=== PATIENT | female | born 1975 | race Hispanic/Latino ===

== ENCOUNTER 2021-10-08 11:08 | Emergency (ER) | payer SELFPAY ==
[2021-10-08 11:48] LABS: #Lymphocytes 1.4 thou/uL (1.20-3.40); #Monocytes 0.8 thou/uL (0.11-0.59); %Basophils 0.1 % (0.0-1.0); %Eosinophils 0.4 % (0.0-10.0); %Lymphocytes 11.4 % (21.0-51.0); %Monocytes 6.8 % (0.0-10.0); %Neutrophils 81.3 % (42.0-75.0); Hemoglobin 12.5 g/dL (12.0-16.0); Mean Corpuscular Hemoglobin 26.1 pg (27.0-31.0); Mean Corpuscular Volume 81.3 fL (78.0-98.0); Mean Platelet Volume 9.7 fL (7.4-10.4); Platelet Count 315 thou/uL (130-400); RBC Distribution Width 16.5 % (11.5-14.5); Red Blood Cell (RBC) Count 4.79 mill/uL (4.20-5.40); White Blood Cell (WBC) Count 12.2 thou/uL (4.8-10.8)
[2021-10-08] MEDS ORDERED: cefTRIAXone\\ROCEPHIN 2 GM VIAL ONE (11:56)
[2021-10-08 11:58] LABS: Bilirubin Unable to Interpret (Negative); Blood, Urine Unable to Interpret (Negative); Clarity Hazy (Clear); Glucose, Urine (Dipstick) Unable to Interpret mg/dL (Negative); Ketone, Urine Unable to Interpret mg/dL (Negative); Leukocyte Unable to Interpret (Negative); Nitrite Unable to Interpret (Negative); Protein, Urine (Dipstick) Unable to Interpret mg/dL (Neg-Trace); Specific Gravity, Urine 1.022 (1.002-1.036); Urobilinogen UNABLE TO INTERPRET mg/dL (Less than 2)
[2021-10-08 11:59] LABS: Bacteria/HPF 1+ HPF (None Seen); RBC/HPF Greater than 50 HPF (0-3)
[2021-10-08 12:00] LABS: Pregnancy Test - Urine (BHCG) Negative (Negative); Pregu Control Background? CLEAR/WHITE (CLR/WHITE); Pregu Control Bar Appear? YES (CONTROL BAR); Specific Gravity 1.022 (1.002-1.036)
[2021-10-08 12:28] LABS: Albumin 4.6 g/dL (3.5-5.0)
[2021-10-08 12:30] LABS: Calcium 10.1 mg/dL (7.8-10.44); Potassium 4.7 mmol/L (3.5-5.1)
[2021-10-08 12:31] LABS: Globulin 3.9 g/dL (2.4-3.5); Glucose 114 mg/dL (70-105); Protein, Total 8.5 g/dL (6.0-8.3)
[2021-10-08 12:32] LABS: Anion Gap 19 mmol/L (10-20); Carbon Dioxide 19 mmol/L (22-29)
[2021-10-08 12:33] LABS: Bilirubin, Total 0.3 mg/dL (0.2-1.2)
[2021-10-08 12:34] LABS: Alkaline Phosphatase 204 U/L (40-110); Calc. Creatinine Clearance 0 mL/min (70-130)
[2021-10-08 12:35] LABS: BUN (Urea Nitrogen) 10 mg/dL (7.0-18.7)
[2021-10-08 12:36] LABS: AST (SGOT) 58 U/L (5-34)
[2021-10-08 12:37] LABS: ALT (SGPT) 81 U/L (8-55)
[2021-10-08 12:38] LABS: Chloride 106 mmol/L (98-107); Sodium 139 mmol/L (136-145)
== END 2021-10-08 14:05 | disposition home or self-care (01) ==
LOC: ERS 11:08
DX: N30.01 Acute cystitis with hematuria (principal); K21.9 Gastro-esophageal reflux disease without esophagitis; D64.9 Anemia, unspecified; Z79.899 Other long term (current) drug therapy
CPT/HCPCS: 80053; 81003; 81015; 81025; 85025; 87077; 87086; 87186; 99283; J0696